=== PATIENT | female | born 1985 ===

== ENCOUNTER 2023-07-12 12:15 | Inpatient (IN) | payer OTHER ==
[~2023-07-12] VITALS: Ht 152.4 cm; Wt 73.5 kg
[2023-07-12] MEDS ORDERED: TAPAZOLE5 MG PO (14:32)
[2023-07-17 23:36] LABS: HEMATOCRIT 30.3 % (36.0-45.00); HEMOGLOBIN 9.7 g/dL (12.0-15.00); MEAN CORPUSCULAR HEMOGLOBIN 23.4 pg (27.00-32.0); PLATELET COUNT 213 K/uL (150-450); RED BLOOD COUNT 4.15 M/uL (4.00-6.00)
[2023-07-17 23:42] LABS: RED CELL DISTRIBUTION WIDTH 20.4 % (11.5-14.5)
[2023-07-18 11:16] LABS: BILIRUBIN TOTAL 0.43 mg/dL (0.3-1.2); CALCIUM 8.9 mg/dL (8.5-10.1); CREATININE SERUM 0.62 mg/dL (0.55-1.02); GFR 107.16
[2023-07-18 11:19] LABS: POTASSIUM 4.48 mEq/L (3.5-5.1)
[2023-07-19 15:20] LABS: HEMATOCRIT 27.8 % (36.0-45.00); MEAN CORPUSCULAR HEMOGLOBIN 23.1 pg (27.00-32.0); MEAN CORPUSCULAR HGB CONC 32.6 g/dl (32.0-36.0); PLATELET COUNT 202 K/uL (150-450); RED BLOOD COUNT 3.91 M/uL (4.00-6.00); RED CELL DISTRIBUTION WIDTH 20.1 % (11.5-14.5)
== END 2023-07-20 11:15 | disposition home or self-care (01) | DRG 743 ==
LOC: SURH 12:15 → O/R 07-17 06:35 → OB/GYN 07-17 17:02
PROVIDERS: Internal Medicine; ADMIT Obstetrics & Gynecology; ATTEND Obstetrics & Gynecology
PROC: 0UT50ZZ Resection of Right Fallopian Tube, Open Approach (ICD-10-PCS; 2023-07-17)
PROC: 0UQ20ZZ Repair Bilateral Ovaries, Open Approach (ICD-10-PCS; 2023-07-17)
PROC: 0UT90ZZ Resection of Uterus, Open Approach (ICD-10-PCS; principal; 2023-07-17 07:00)
DX: D25.2 Subserosal leiomyoma of uterus (principal); D25.0 Submucous leiomyoma of uterus; Z20.822 Contact with and (suspected) exposure to COVID-19